=== PATIENT | male | born 1940 | race Caucasian/White ===

== ENCOUNTER → 2019-07-28 | Outpatient (CLI) | payer MEDICARE, BC | LOC: LL.LAB 14:25 | PROVIDERS: ATTEND Physician Assistant | DX: J32.0 Chronic maxillary sinusitis (principal) | CPT/HCPCS: 36415; 85025 ==

== ENCOUNTER 2019-11-06 11:11 | Day surgery (SDC) | payer MEDICARE, BC ==
[~2019-11-06 11:11] MED LIST: Lactated Ringers 1,000 ML IV SCH; Propofol 200 MG/20 ML SDV ONE; Sodium Chloride 0.9% 10 ML Syringe FLUSH PRN
--- NOTE | 2019-11-06 12:38 | PCM.HPR ---
H & P Addendum review - H & P Addendum Review Date of Original H & P: 10/28/19 Date Reviewed: 11/06/19 Time Reviewed: 12:38 Patient was Examined: No Changes
[2019-11-06] MEDS ORDERED: Propofol 200 MG/20 ML SDV ONE (12:45)
--- NOTE | 2019-11-06 13:22 | PCM.OPNOTE ---
- General Post-Op/Procedure Note Date of Surgery/Procedure: 11/06/19 Operative Procedure(s): Colonoscopy with polypectomy Findings: 3 small polyps Pre Op Diagnosis: Hx Polyps Post-Op Diagnosis: Same Anesthesia Technique: MAC Primary Surgeon: Ash Bhardwaj Anesthesia Provider: Radha Lynn EBRosana in mLs: 0 Complications: None Condition: Good
--- NOTE | 2019-11-06 14:49 | OR ---
Date of Procedure: 11/06/2019 PREOPERATIVE DIAGNOSIS: History of colon polyps. POSTOPERATIVE DIAGNOSIS: 1. Colon polyps. 2. Sigmoid diverticulosis. PROCEDURE: Colonoscopy with polypectomy. ANESTHESIA: IV sedation. PROCEDURE IN DETAIL: Patient was brought to the procedure room where he was placed on his left side and IV sedation administered. Digital rectal exam was performed, which was normal. Colonoscope was inserted and advanced to the level of the cecum without difficulty. Cecal position was confirmed by identifying the appendiceal lumen and ileocecal valve. Prep was good and surfaces were well visualized. Upon withdrawing the scope, the ascending colon was normal. In the transverse colon, there were 2 adjacent 5 mm and 6 mm sessile polyps, removed with a cautery snare. Descending colon was normal. In the distal sigmoid, there was another similar sized sessile polyp located at 15 cm from the anal verge, removed with cautery snare, and lastly, there was another similar sized polyp in the rectum at 10 cm, removed with a cautery snare. All these are small and benign appearing. Air is removed and the scope withdrawn. Patient tolerated the procedure well and returned to recovery in stable condition. I do not feel that the patient requires any more colonoscopies at his age given the small polyps that were identified today. SURAJ WARE MD /[id number]
== END 2019-11-06 14:40 | disposition home or self-care (01) ==
LOC: LL.SDS 11:11
PROVIDERS: ATTEND Surgery
DX: Z12.11 Encounter for screening for malignant neoplasm of colon (principal); D12.3 Benign neoplasm of transverse colon; K62.1 Rectal polyp; K57.30 Diverticulosis of large intestine without perforation or abscess without bleeding; I10 Essential (primary) hypertension; E78.5 Hyperlipidemia, unspecified; F17.220 Nicotine dependence, chewing tobacco, uncomplicated; Z79.82 Long term (current) use of aspirin; Z79.899 Other long term (current) drug therapy; Z86.010 Personal history of colon polyps; Z91.018 Allergy to other foods
CPT/HCPCS: 45385; J2704; J7120; 00812; 88305